=== PATIENT | male | born 1940 | race Caucasian/White ===

== ENCOUNTER 2020-05-26 08:02 | Outpatient (CLI) | payer MEDICARE, OTHER ==
[2020-05-26] MEDS ORDERED: CYAN-27 PO (10:38)
[2020-05-26] MEDS ORDERED: FINA5TAB4 PO (10:38)
[2020-05-26] MEDS ORDERED: METO25TA2 PO (10:38)
[2020-05-26] MEDS ORDERED: CHOL10003 PO (10:38)
[2020-05-26] MEDS ORDERED: LISI5TAB7 PO (10:38)
[2020-05-26] MEDS ORDERED: METF500T17 PO (10:38)
[2020-05-26] MEDS ORDERED: MULT-449 PO (10:38)
[2020-05-26] MEDS ORDERED: HYDR12.517 PO (10:38)
[2020-05-26] MEDS ORDERED: ASPI81TA45 PO (10:38)
== END 2020-05-26 23:59 | disposition home or self-care (01) ==
LOC: STAR 08:02
PROVIDERS: ATTEND Internal Medicine Gastroenterology
DX: Z01.818 Encounter for other preprocedural examination (principal); K62.1 Rectal polyp
CPT/HCPCS: 93005

== ENCOUNTER 2020-06-02 06:16 | Day surgery (SDC) | payer MEDICARE, OTHER ==
[~2020-06-02] VITALS: Ht 172.7 cm; Wt 96.0 kg
[~2020-06-02 06:16] MED LIST: ASPI81TA45 PO; CHOL10003 PO; CYAN-27 PO; FINA5TAB4 PO; HYDR12.517 PO; LISI5TAB7 PO; METF500T17 PO; METO25TA2 PO; MULT-449 PO
[2020-06-02] MEDS ORDERED: LACTATED RINGERS 1,000 ML IV SCH (07:09)
[2020-06-02 07:12] VITALS: BP 151/78
[2020-06-02] MEDS ORDERED: CHLORHEXIDINE 15 ML UDC MM ONE (07:30)
[2020-06-02] MEDS ORDERED: ONDANSETRON 2MG/ML, 2ML IVPush PRN (08:00)
[2020-06-02] MEDS ORDERED: FENTANYL PF 100 MCG/2ML IV PRN (08:00)
== END 2020-06-02 08:28 | disposition home or self-care (01) ==
LOC: OUT 06:16
PROVIDERS: ATTEND Internal Medicine Gastroenterology
DX: Z09 Encounter for follow-up examination after completed treatment for conditions other than malignant neoplasm (principal); Z53.8 Procedure and treatment not carried out for other reasons; Z20.828 Contact with and (suspected) exposure to other viral communicable diseases; I10 Essential (primary) hypertension; E11.9 Type 2 diabetes mellitus without complications; K57.30 Diverticulosis of large intestine without perforation or abscess without bleeding; Z86.010 Personal history of colon polyps; Z87.891 Personal history of nicotine dependence
CPT/HCPCS: 36415; 82962; 87635; J7120